=== PATIENT | female | born 1990 | race Caucasian/White ===

== ENCOUNTER 2022-09-13 12:05 | Outpatient (CLI) | payer BC | END 2022-09-13 12:06 | disposition home or self-care (01) | LOC: BICULT 12:05 | PROVIDERS: ATTEND Student in an Organized Health Care Education/Training Program | DX: Z3A.01 Less than 8 weeks gestation of pregnancy (principal); Z3A.08 8 weeks gestation of pregnancy | CPT/HCPCS: 76801 ==

== ENCOUNTER 2023-11-30 21:16 | Emergency (ER) | payer BC ==
[~2023-11-30 21:16] MED LIST: Iopamidol 370 76% 100 ML VIAL ONE
[2023-11-30 22:26] LABS: #Basophils 0.05 10x3/uL (0.0-0.2); %Basophils 0.6 % (0.0-1.0); %Eosinophils 1.4 % (0.0-10.0); %Lymphocytes 37.5 % (21.0-51.0); %Monocytes 7.3 % (0.0-10.0); %Neutrophils 52.9 % (42.0-75.0); ALT (SGPT) 16 U/L (8-55); AST (SGOT) 18 U/L (5-34); Alkaline Phosphatase 70 U/L (40-110); Anion Gap 14 mmol/L (10-20); BUN (Urea Nitrogen) 8 mg/dL (7.0-18.7); Bilirubin, Total 0.3 mg/dL (0.2-1.2); Calc. Creatinine Clearance 0 mL/min (70-130); Calcium 8.9 mg/dL (7.8-10.44); Carbon Dioxide 21 mmol/L (22-29); Chloride 109 mmol/L (98-107); Estimated GFR 94; Globulin 2.7 g/dL (2.4-3.5); Glucose 102 mg/dL (70-105); Hematocrit 39.6 % (36.0-47.0); Hemoglobin 13.2 g/dL (12.0-16.0); Mean Corpuscular HGB CONC 33.3 g/dL (32.0-36.0); Mean Corpuscular Hemoglobin 29.3 pg (27.0-31.0); Mean Corpuscular Volume 87.8 fL (78.0-98.0); Mean Platelet Volume 12.3 fL (7.4-10.4); Platelet Count 233 10x3/uL (130-400); Potassium 3.6 mmol/L (3.5-5.1); Protein, Total 6.7 g/dL (6.0-8.3); RBC Distribution Width 12.5 % (11.5-14.5); Red Blood Cell (RBC) Count 4.51 mill/uL (4.20-5.40); Sodium 140 mmol/L (136-145)
[2023-11-30 22:29] LABS: BHCG - Serum Negative (NEGATIVE); Pregs Control Background? CLEAR/WHITE (CLR/WHITE); Pregs Control Bar Appear? YES (CONTROL BAR)
[2023-11-30] MEDS ORDERED: Ondansetron PF 4 MG/2 ML Vial ONE (22:31)
[2023-11-30] MEDS ORDERED: Morphine 4 MG/ML VIAL ONE (22:31)
[2023-11-30 23:09] LABS: Bilirubin Negative (Negative); Blood, Urine Negative (Negative); CAUTI Indications for Culture Dysuria,urgency,freq; Clarity Clear (Clear); Glucose, Urine (Dipstick) Normal (Negative); Ketone, Urine Negative (Negative); Leukocyte Negative Leu/uL (Negative); Nitrite Negative (Negative); Protein, Urine (Dipstick) Negative (Neg-Trace); RBC/HPF None Seen HPF (0-3); Specific Gravity, Urine 1.005 (1.002-1.036); Squamous Epithelial 0-3 HPF (0-3); Urobilinogen Normal mg/dL (Less than 2); WBC/HPF 0-3 HPF (0-3); pH, Urine 6.5 (5.0-9.0)
[2023-11-30 23:12] LABS: Bacteria/HPF 1+ HPF (None Seen)
[2023-11-30 23:13] LABS: Urine Culture Reflex No No
[2023-12-01] MEDS ORDERED: Morphine 4 MG/ML VIAL ONE (00:04)
[2023-12-01] MEDS ORDERED: Ondansetron PF 4 MG/2 ML Vial ONE (00:04)
[2023-12-01] MEDS ORDERED: Ketorolac Tromethamine 30 MG (1 mL) VIAL ONE (05:21)
[2023-12-01] MEDS ORDERED: Dicyclomine 20 MG TAB ONE (05:21)
== END 2023-12-01 06:30 | disposition home or self-care (01) ==
LOC: ERS 21:16
DX: R10.32 Left lower quadrant pain (principal); R11.0 Nausea
CPT/HCPCS: 36415; 74177; 76856; 80053; 81001; 83690; 84703; 85025; 96374; 96375; 96376; J1885; J2272; J2405; Q9967